=== PATIENT | female | born 1945 | race Caucasian/White ===

== ENCOUNTER 2021-08-12 16:00 | Emergency (ER) | payer MEDICARE ==
[~2021-08-12] VITALS: Ht 160 cm; Wt 90.7 kg
== END 2021-08-12 16:56 | disposition home or self-care (01) ==
LOC: ER 16:05
DX: R50.9 Fever, unspecified (principal); U07.1 COVID-19; R05.9 Cough, unspecified; E11.9 Type 2 diabetes mellitus without complications; E03.9 Hypothyroidism, unspecified; E66.9 Obesity, unspecified
CPT/HCPCS: 99284